=== PATIENT | female | born 1985 | race Caucasian/White ===

== ENCOUNTER 2018-08-29 18:37 | Emergency (ER) | payer BC, OTHER ==
[2018-08-29 19:02] VITALS: BP 109/77
--- NOTE | 2018-08-29 19:18 | UC ---
Abdominal Pain Female HPI - HPI Summary HPI Summary: no days of worsening abdomen pain vomiting, fever, anorexia, did have diarrhea yesterday- no other illness exposures no recent antibiotics, travel - History of Current Complaint Chief Complaint: UCAbdominalPain Stated Complaint: VOMITING, FEVER Time Seen by Provider: 08/29/18 19:00 Hx Obtained From: Patient Hx Last Menstrual Period: has had period/spotting continuously since Jul - has been f/u w/ PCP ?: No Onset/Duration: Sudden Onset, Lasting Days - 2, Still Present, Worse Since - today Timing: Constant Pain Intensity: 5 Pain Scale Used: 0-10 Numeric Location: Diffuse, Discrete At: RLQ Radiates: No Character: Burning, Cramping Aggravating Factor(s): Food Alleviating Factor(s): Nothing Associated Signs and Symptoms: Positive: Decreased Appetite, Nausea, Vomiting Allergies/Adverse Reactions: Allergies Allergy/AdvReac Type Severity Reaction Status Date / Time cyclobenzaprine AdvReac Severe confusion Verified 08/29/18 19:02 [facility] Home Medications: Home Medications Acetaminophen [Tylenol] 1,000 mg PO ONCE PRN 08/29/18 [History Confirmed ] Dextroamphetamine/Amphetamine [Adderall Xr 20 mg Capsule] 60 mg PO DAILY [History Confirmed 08/29/18] Etonogestrel [Nexplanon] 68 mg IMPLANT 08/29/18 [History] Ibuprofen TAB* [Advil TAB*] 600 mg PO ONCE PRN 08/29/18 [History Confirmed 08/29] Norgestimate-Ethinyl Estradiol [Sprintec 28 0.25-35 mg-Mcg] 1 tab PO DAILY 08/29 [History Confirmed 08/29/18] PMH/Surg Hx/FS Hx/Imm Hx Previously Healthy: Yes Psychological History: Other Other Psychological History: ADHD - Surgical History Surgical History: Yes Surgery Procedure, Year, and Place: breast reduction 2004 - Family History Known Family History: Positive: None - Social History Occupation: Employed Full-time Lives: With Family Alcohol Use: Rare Substance Use Type: None Smoking Status (MU): Never Smoked Tobacco Review of Systems All Other Systems Reviewed And Are Negative: Yes Constitutional: Positive: Fever, Chills Skin: Positive: Negative Eyes: Positive: Negative ENT: Positive: Negative Respiratory: Positive: Negative Cardiovascular: Positive: Negative Gastrointestinal: Positive: Abdominal Pain, Vomiting, Nausea Genitourinary: Positive: Negative Motor: Positive: Negative Neurovascular: Positive: Negative Musculoskeletal: Positive: Negative Neurological: Positive: Negative Psychological: Positive: Negative Is Patient Immunocompromised?: No Physical Exam Triage Information Reviewed: Yes Appearance: Ill-Appearing, Pain Distress, Thin Vital Signs: Initial Vital Signs Temp 98.7 F 08/29/18 18:57 Pulse 107 08/29/18 18:57 Resp 16 08/29/18 18:57 BP 109/77 08/29/18 18:57 Pulse Ox 100 08/29/18 18:57 Vital Signs Reviewed: Yes Eye Exam: Normal Eyes: Positive: Conjunctiva Clear ENT Exam: Normal ENT: Positive: Normal ENT inspection, Hearing grossly normal, Pharynx normal. Negative: Nasal congestion, Trismus, Muffled voice, Hoarse voice Dental Exam: Normal Neck exam: Normal Neck: Positive: Supple, Nontender Respiratory Exam: Normal Respiratory: Positive: Chest non-tender, Lungs clear, Normal breath sounds, No respiratory distress, No accessory muscle use Cardiovascular Exam: Other Cardiovascular: Positive: No Murmur, Pulses Normal, Brisk Capillary Refill, Tachycardia Abdomen Description: Positive: Soft, McBurney's Point Tenderness. Negative: Nontender, CVA Tenderness (R), CVA Tenderness (L) Bowel Sounds: Positive: Present Musculoskeletal Exam: Normal Musculoskeletal: Positive: Strength Intact, ROM Intact, No Edema Neurological Exam: Normal Neurological: Positive: Alert, Muscle Tone Normal Psychological Exam: Normal Skin Exam: Normal Abd Pain Female Course/Dx - Course Course Of Treatment: keep patient npo, to hospital for evaluation of rlq pain and fever - Differential Dx/Diagnosis Provider Diagnosis: Acute abdominal complaint Discharge - Sign-Out/Discharge Documenting (check all that apply): Patient Departure All imaging exams completed and their final reports reviewed: No Studies - Discharge Plan Condition: Good Disposition: HOME-RECOMMEND TO ED Referrals: Nehemiah Pinon MD [Primary Care Provider] - Additional Instructions: nothing to eat or drink---please go directly to the [facility] emergency department for further care - Billing Disposition and Condition Condition: GOOD Disposition: Home-Recommend to ED
--- NOTE | 2018-08-31 15:47 | UC ---
- Progress Note Progress Note: 08/31/2018 Final urine culture: no growth. pt was sent to the ER for further management. No change Trinity Webber PA-C Course/Dx - Diagnoses Provider Diagnoses: Acute abdominal complaint Discharge - Sign-Out/Discharge Documenting (check all that apply): Post-Discharge Follow Up All imaging exams completed and their final reports reviewed: No Studies - Discharge Plan Condition: Good Disposition: HOME-RECOMMEND TO ED Referrals: Nehemiah Pinon MD [Primary Care Provider] - Additional Instructions: nothing to eat or drink---please go directly to the [facility] emergency department for further care - Billing Disposition and Condition Condition: GOOD Disposition: Home-Recommend to ED
== END 2018-08-29 19:30 | disposition home health service (06) ==
LOC: UCEAST 18:37
DX: R10.9 Unspecified abdominal pain (principal); F90.9 Attention-deficit hyperactivity disorder, unspecified type; Z88.8 Allergy status to other drugs, medicaments and biological substances; Z79.899 Other long term (current) drug therapy
CPT/HCPCS: 81003; 81025; 87086; 99212; G0463